=== PATIENT | female | born 1985 | race Caucasian/White ===

== ENCOUNTER 2024-06-30 15:01 | Observation (INO) | payer OTHER ==
[~2024-06-30] VITALS: Ht 152.4 cm; Wt 79.4 kg
[2024-06-30 15:29] LABS: BASOPHILS ABSOLUTE AUTO 0.07 K/mm3 (0.00-0.23); BASOPHILS PERCENT AUTO 1 % (0-2); EOSINOPHILS ABSOLUTE AUTO 0.22 K/mm3 (0.00-0.68); EOSINOPHILS PERCENT AUTO 3 % (0-6); Hematocrit 40.5 % (33.0-51.0); Hemoglobin 13.6 g/dL (11.5-16.0); IMMATURE GRAN ABSOLUTE AUTO 0.01 K/mm3 (0.00-0.10); IMMATURE GRAN PERCENT AUTO 0 % (0-1); LYMPHOCYTES ABSOLUTE AUTO 2.07 K/mm3 (0.84-5.20); LYMPHOCYTES PERCENT AUTO 29 % (21-46); MONOCYTES ABSOLUTE AUTO 0.56 K/mm3 (0.16-1.47); MONOCYTES PERCENT AUTO 8 % (4-13); Mean Corpuscular HGB 33.5 pg (26.0-34.0); Mean Corpuscular HGB Conc 33.6 g/dL (31.5-36.5); Mean Corpuscular Volume 100 fL (80-100); Mean Platelet Volume 9.3 fL (9.1-12.4); NEUTROPHILS ABSOLUTE AUTO 4.14 K/mm3 (1.96-9.15); NEUTROPHILS PERCENT AUTO 59 % (41-73); Platelet Count 249 K/mm3 (150-400); RDW Standard Deviation 48.2 fL (35.1-46.3); Red Blood Cell Count 4.06 M/mm3 (3.80-5.20); White Blood Cell Count 7.07 K/mm3 (4.00-11.30)
[2024-06-30 15:41] LABS: Source, Urine Clean Catch
[2024-06-30 15:45] LABS: Appearance, Urine Clear (Clear); Bilirubin, Urine Neg (Neg); Blood, Urine Neg (Neg); Color, Urine Yellow (P-Yellow); Glucose Qualitative, Urine Neg (Neg); Ketones, Urine Neg (Neg); Leukocyte Esterase, Urine 2+ (Neg); Nitrite, Urine Neg (Neg); Protein, Urine Neg (Neg); Specific Gravity, Urine 1.015 (1.003-1.022); Urobilinogen, Urine NORM (Normal); pH, Urine 6.5 (5.0-8.0)
[2024-06-30 15:54] LABS: Bacteria Many /hpf; Red Blood Cells, Urine 0-2 /hpf (0-2); Squamous Epithelial Cells Few /hpf (Few)
[2024-06-30 15:55] LABS: Ethanol (Alcohol), Blood, Med <3 mg/dL; Salicylate <1.7 mg/dL (2.8-20.0)
[2024-06-30 16:04] LABS: U Amphetamine Screen DETECTED; U Barbituate Screen Not Detected; U Benzodiazapine Screen DETECTED; U Buprenorphine Screen Not Detected; U Cannabinoids Screen DETECTED; U Cocaine Screen Not Detected; U Methadone Screen Not Detected; U Methamphetamine Screen Not Detected; U Opiates Screen Not Detected; U Oxycodone Screen Not Detected; U Phencyclidine Screen Not Detected
[2024-06-30 16:08] LABS: Alanine Aminotransfer (ALT/SGP 15 U/L (12-78); Albumin, Blood 3.6 g/dL (3.4-5.0); Albumin/Globulin Ratio 1.1 (0.8-1.8); Alk Phos 48 U/L (50-136); Anion Gap 8 mmol/L (3-11); Aspartate Aminotrans (AST/SGOT 13 U/L (12-37); Bilirubin, Total 0.2 mg/dL (0.1-1.0); Blood Urea Nitrogen 14 mg/dL (8-24); Bun/Creatinine Ratio 19.7 (12.0-20.0); CO2, Blood 27 mmol/L (21-32); Calcium, Blood 8.9 mg/dL (8.5-10.1); Chloride, Blood 109 mmol/L (98-108); Creatinine, Blood 0.71 mg/dL (0.40-1.00); Globulin, Blood 3.4 g/dL (2.2-4.0); Glomerular Filtration Rate 110 (60-); Glucose, Blood 95 mg/dL (70-99); Sodium, Blood 140 mmol/L (136-145)
[2024-06-30 16:12] LABS: Acetaminophen, Random <2.0 ug/mL (10.0-30.0)
[2024-06-30] MEDS ORDERED: CLONAZEPAM1 MG PO (17:14)
[2024-06-30] MEDS ORDERED: ZANAFLEX413 PO (17:15)
[2024-06-30] MEDS ORDERED: OLANZAPINE5 M1 PO (17:15)
[2024-06-30] MEDS ORDERED: PROM12.5S PR (17:16)
[2024-06-30] MEDS ORDERED: PANT20 PO (17:16)
[2024-06-30] MEDS ORDERED: CYCL10 PO (17:17)
[2024-07-01] MEDS ORDERED: ABILIFY MYCITE10 M2 PO (09:58)
[2024-07-01] MEDS ORDERED: FAMO40 PO (11:31)
[2024-07-01] MEDS ORDERED: CLON1 PO (11:33)
[2024-07-01] MEDS ORDERED: Prozac40 MG PO (11:34)
[2024-07-01] MEDS ORDERED: BUSPIRONE HCL PO (11:35)
[2024-07-01] MEDS ORDERED: LISI20 PO (11:36)
[2024-07-01] MEDS ORDERED: LEVOTHYROXINE75 MC9 PO (11:36)
[2024-07-01] MEDS ORDERED: MONT10T PO (11:37)
[2024-07-01] MEDS ORDERED: AMPDEX10 PO (11:38)
== END 2024-06-30 18:38 | disposition other institution (70) ==
LOC: ER 15:01 → EOR 15:02
PROVIDERS: ADMIT Student in an Organized Health Care Education/Training Program
DX: F33.2 Major depressive disorder, recurrent severe without psychotic features (principal); F60.3 Borderline personality disorder; R45.851 Suicidal ideations; Z88.8 Allergy status to other drugs, medicaments and biological substances; Z79.899 Other long term (current) drug therapy
CPT/HCPCS: 80053; 80320; 81001; 81025; 85025; 87086; 93005; 93010; 99285-25; G0480

== ENCOUNTER 2024-06-30 16:29 | Inpatient (IN) | payer OTHER ==
[~2024-06-30] VITALS: Ht 152.4 cm; Wt 82.0 kg
[2024-06-30] MEDS ORDERED: CLONAZEPAM1 MG PO (17:14)
[2024-06-30] MEDS ORDERED: ZANAFLEX413 PO (17:15)
[2024-06-30] MEDS ORDERED: OLANZAPINE5 M1 PO (17:15)
[2024-06-30] MEDS ORDERED: PANT20 PO (17:16)
[2024-06-30] MEDS ORDERED: PROM12.5S PR (17:16)
[2024-06-30] MEDS ORDERED: CYCL10 PO (17:17)
[2024-06-30] MEDS ORDERED: Melatonin 3 MG Tab PO PRN (17:40)
[2024-06-30] MEDS ORDERED: Haloperidol 5 MG Tab PO PRN (17:45)
[2024-06-30] MEDS ORDERED: Haloperidol Lactate Inj. 5 MG/ML Injection IM PRN (17:45)
[2024-06-30] MEDS ORDERED: Acetaminophen 325 MG TABLET PO PRN (17:45)
[2024-06-30] MEDS ORDERED: OLANZapine 10 MG Vial IM PRN (17:45)
[2024-06-30] MEDS ORDERED: TraZODone HCl 50 MG Tab PO PRN (17:45)
[2024-06-30] MEDS ORDERED: Ibuprofen 600 MG Tab PO PRN (17:45)
[2024-06-30] MEDS ORDERED: OLANZapine ODT 10 MG Tab MM PRN (17:50)
--- NOTE | 2024-06-30 19:00 | NUR ---
CAMILA ARRIVED TO UNIT AT 1945 WITH THE ACCOMPANY OF STAFF AND SECURITY. BELONGINGS SECURED, BODY AUDIT COMPLETED WITH ANDREA TEJEDA. NOTED OLD SELF-INFLICTED CUTTING PEREZ TO RT FOREARM, AND BL LEGS. PT ALSO NOTED TO HAVE SMALL BRUISE TO LLK. PT IRRITABLE, FRUSTRATED DURING ASSESSMENT. PT WAS ABLE TO COMPLETE SIGNING ADMISSION FORMS BUT STATED THIS IS DUMB AND I DON T WANT TO BE HERE OR SIGN ANY OF THIS. PT REFUSED TO COMPLETE ADMISSION ASSESSMENT, AND WAS TAKEN TO ROOM. PT BECAME AGITATED AND STATED I CANNOT BE IN A ROOM WITH SOMEONE, I NEED TO BE BY MYSELF. ON THE DIRECTION O HOME ORGANIZER, ROOM CHANGES WERE MADE AND PT WILL BE IN A ROOM BY HERSELF TONIGHT. EXPLAINED TO PT THAT THIS WAS FOR TONIGHT ONLY AND WE COULD NOT GUARANTEE SHE WOULD NOT HAVE A ROOMMATE IN THE FUTURE. PT IN AGREEMENT. THIS RN ABLE TO CALM PT AND DISCUSSED PRN MEDICATION OPTIONS TO ASSIST WITH MANAGING SX. PT DENIED AND STATED I JUST NEED TO BE AWAY FROM PEOPLE. PT IS CURRENTLY PACING UNIT WITH ARMS CROSSED. SUPPORT AND ENCOURAGEMENT PROVIDED. SAFETY MEASURES MAINTAINED VIA Q15 MINUTE CHECKS.
--- NOTE | 2024-06-30 21:36 | NUR ---
PT CAME TO NS ASKING TO BE PLACED INTO SECLUSION STATING, "I DO NOT WANT TO BE HERE." PT OBSERVED TO BE IRRITABLE, AGITATED AND TEARFUL STATING, "I DON'T WANT TO LIVE ANYMORE."PT REDIRECTED TO SENSORY ROOM AND PROVIDED A WEIGHTED BLANKET. PRN MEDICATION OFFERED AND PT AGREEABLE TO TAKE PO ZYPREXA AND TRAZODONE. MEDICATION GIVEN ORDERED; SEE EMAR. PT REMAINED IN SENSORY ROOM ANOTHER 15 MINUTES AND RETURNED TO ROOM. SAFETY MAINTAINED VIA Q15 MINUTE CHECKS.
--- NOTE | 2024-06-30 23:09 | NUR ---
CALLED AT 2155 D/T PATIENT CONTINUING TO ELEVATE WITH NO N.O RCVD. PT THEN PROCEEDED TO BANG ON WALL. THIS RN WAS EN ROUTE TO MED ROOM TO PULL PRN HALDOL WHEN [facility] SULLIVAN WAS CALLED AND SECURITY NOTIFIED. PT WAS OBSERVED BY BISHNU TEJEDA, AND SONA TRINIDAD AND ADRIANA TO BE ATTEMPTING TO STRANGLE SELF WITH ROBE AROUND NECK. PTS ROBE WAS SUCCESSFULLY REMOVED FROM PTS NECK AND PT WAS ASSISTED TO THE FLOOR. ANDREA TEJEDA MEDICATED PT WITH HALDOL 5MG IM IN RT DORSOGLUTEAL. PT AT THAT TIME REQUESTED TO GO TO SECLUSION ROOM. PT ESCORTED TO SECLUSION ROOM AT 2215 WITH STAFF AND SECURITY. PT STATED UPON GETTING TO SECLUSION ROOM, I DONT WANT YOUR HELP AND I DONT WANT TO LIVE. THE ONLY REASON I CALLED 911 WAS SO THAT MY MOM WOULD NOT FIND MY BODY. PT IS NOW LYING ON MATTRESS IN SECLUSION ROOM, CHEST RISING, IN NAD. RESEARCH AND DEVELOPMENT ENGINEER, ANDREA, NOTIFIED MD INSPECTOR ROUGH CASTINGS RE: PTS ESCALATED BEHAVIOR AND SITUATION. 1:1 LOS PRECAUTIONS INITIATED FOR PT SAFETY. NO NEW MEDICATION ORDERS RECEIVED.
--- NOTE | 2024-07-01 01:39 | NUR ---
LATE NOTE FROM 222906/30/24 PER MD. NO MEDS ARE TO BE GIVEN TO PATIENT FOR THE REST OF THE NIGHT.
[2024-07-01 02:56] VITALS: BP 128/91
--- NOTE | 2024-07-01 04:28 | NUR ---
PT REMAINS IN SECLUSION ROOM, LYING ON MATTRESS APPEARING TO SLEEP, CHEST RISING IN NAD. 1:[address] FOR PT SAFETY.
[2024-07-01] MEDS ORDERED: Multivitamins 1 Tab PO SCH (09:00)
[2024-07-01] MEDS ORDERED: ABILIFY MYCITE10 M2 PO (09:58)
[2024-07-01] MEDS ORDERED: ARIPiprazole 10 MG Tab PO SCH (10:00)
[2024-07-01] MEDS ORDERED: FLUoxetine HCL 20 MG CAP PO SCH (10:00)
[2024-07-01] MEDS ORDERED: LORazepam 1 MG Tab PO ONE (10:50)
[2024-07-01] MEDS ORDERED: FAMO40 PO (11:31)
[2024-07-01] MEDS ORDERED: CLON1 PO ×2 (11:33→11:38)
[2024-07-01] MEDS ORDERED: Prozac40 MG PO (11:34)
[2024-07-01] MEDS ORDERED: BUSPIRONE HCL PO (11:35)
[2024-07-01] MEDS ORDERED: LISI20 PO (11:36)
[2024-07-01] MEDS ORDERED: LEVOTHYROXINE75 MC9 PO (11:36)
[2024-07-01] MEDS ORDERED: MONT10T PO (11:37)
[2024-07-01] MEDS ORDERED: AMPDEX10 PO (11:38)
--- NOTE | 2024-07-01 12:00 | NUR ---
PT APPEARED TO BE SLEEPING IN THE SECLUSION ROOM AT THE START OF THE SHIFT. WHEN SHE WOKE UP SHE REPORTED, "I DON'T WANT TO FUCHING BE HEERE, I DON'T NEED ANYTHING FROM YOU! IF I HAVE TO HAVE SOMEONE I DON'T KNOW WATCHING ME EVERY MINUTE i WILL JUST STAY HERE IN THIS ROOM." REFERING TO THE SECLUSION ROOM. SEVERAL HOURS LATER SHE WENT TO HER ROOM AND WAS AGREEABLE TO TAKING MEDS. SHE HAS BEEN RESTING ON HER BED. SHE DID WRITE A MESSAGE TO THE MENTAL HEALTH PROVIDER ENDORSING THAT SHE IS NOT A THREAT TO HERSELF, SHE REMAINS ON A 1:1 STATUS FOR SAFETY.
[2024-07-01] MEDS ORDERED: BusPIRone HCl 5 MG Tab PO SCH (14:00)
--- NOTE | 2024-07-01 17:24 | NUR ---
PT WAS GIVEN ATIVAN 2MG AT 11:15, SHE ATE LUNCH AND HAS BEEN RESTING ON HER BED ALL AFTERNOON.
[2024-07-01] MEDS ORDERED: LORazepam 1 MG Tab PO SCH (21:00)
--- NOTE | 2024-07-01 21:22 | NUR ---
PT WOKE UP AT THE CHANGE OF SHIFT AND MADE A PHONE CALL TO HER MOTHER.HER VOICE TONE WAS ANGERY ND ELEVATED. SHE WAS TRYING TO TELL HER MOTHER TO LEAVE HER BOYFRIEND AND SHE NEEDED HER FOR HERSELF ONLY. SHE STATED THAT IF HER MOMS BOYFRIEND DOES NOT LEAVE THEN SHE IS GOING TO LEAVE AND HER MOM WILL NO LONGER SEE HER. PT HUNG UP ON HER MOM AND WANTED TO GO TO THE SECLUSION ROOM AT 19:15.SHE WENT INTO THE SECLUSION ROOM ON HER OWN. TRIED TO INTERVIEW HER. ASKED WHY SHE CAME INTO THIS ROOM. SHE SAID SHE COULD NOT TRUST HERSELF. REQUESTED COLACE STOOL SOFTNER SHE IS CONSTIPATED. TOLD HER WILL LEAVE A MESSAGE FOR THE DR IN THE MORNING. SHE SAID OK. SHE DID NOT WANT TO INTERVIEW. HER TONE WAS ANGERY.WILL CONTINUE TO MONITOR
--- NOTE | 2024-07-02 05:21 | NUR ---
SHIFT SUMMARY PATIENT HAS SLEPT ALL NIGHT. SHE IS IN THE SECLUSION ROOM THAT SHE PUT HERSELF IN AFTER A PHONE CALL TO HER MOTHER THAT MADE HER UPSET. SHE REMAINS ON A 1:1 STATUS. WILL CONTINUE TO MONITOR.
[2024-07-02] MEDS ORDERED: Levothyroxine Sodium 0.075 MG Tab PO SCH (06:00)
--- NOTE | 2024-07-02 08:26 | NUR ---
ASSUMED CARE FROM PRIOR SHIFT. PATIENT PUT HERSELF IN ISOLATION FOR THE EVENING SHIFT. SHE REQUESTED THIS MORNING TO GO BACK TO HER ROOM. SHE IS VERY AGITATED AND WANTING TO GO HOME. SHE IS CRYING AND YELLING TO "BE OFF 1:1 SHE FEELS LIKE A TRAPPED ANILMAL". SHE BEGAN TO BANG HER HEAD AGAINST THE BED. SN WAS ABLE TO PUT SELF AGAINST THE IMPACT OF HER AND THE BED. SHE IS COMPLIANT TO IM AND PO MEDICATIONS THIS MORING. SHE IS A/OX4, ABLE TO VOICE NEEDS AND HAVE MEANINGFUL CONVERSATION. SHE IS STILL HAVING SI THOUGHTS, DENIES AH AND VH. SHE DID REQUEST HER MATTRESS BE PUT ON THE FLOOR IN HER ROOM. SHE IS WILLING TO BE PUT IN LINE OF SIGHT WITH MATTRESS ON THE FLOOR. SHE IS CURRENTLY RESTING. WE WILL CONTINUE TO MONITOR WITH 1:1 FOR SAFETY.
[2024-07-02] MEDS ORDERED: Lisinopril 20 MG Tab PO SCH (09:00)
--- NOTE | 2024-07-02 11:46 | NUR ---
Patient continues to sleep on the floor with mattress in line of sight = 1:1. she remains impulsive when a wake, banging her head against any hard surface. we will continue to monitorfor safety. She hasn't eaten today. She is drinking water.
[2024-07-02] MEDS ORDERED: Promethazine HCl 25 MG Tab PO PRN (13:25)
--- NOTE | 2024-07-02 17:34 | NUR ---
PATIENT HAD A "LONG DAY". SHE WAS VERY TEARFUL THIS MORNING WITH AN EPPISODE OF IMPULSIVE HEAD BANGING ON THE BED FRAME. SHE HAS BEEN COMPLIANT WITH ASSESSMENT, CARE AND MEDICATIONS. SHE DID HAVE A COUPLE OF NAPS TODAY AND HAS EATEN 100% X2 MEALS. HER MOTHER CAME IN FOR A VISIT. I DID ASK CAMILA "HOW WAS YOUR VISIT WITH YOUR MOM?" SHE INFORMED ME IT WAS "SO SO". SHE HAS HAD NO NOTED BEHAVIORS OR ISSUES SENCE THIS MORNING. SHE DOES SAY SHE IS STIL HAVING THOUGHTS OF SI, DENIES ANY AH OR VH. SHE IS STILL HIGH RISK FOR SI AND REMAINS ON 1:1 FOR CONTINUED SAFETY.
[2024-07-02 21:04] VITALS: BP 138/89
--- NOTE | 2024-07-03 04:49 | NUR ---
PATIENT WAS IN HALLWAY TALKING WITH PEERS WHEN RN ARRIVED. SHE WAS PLEASANT AND COOPERATIVE WITH CARES, WANTING TO TAKE HER EVENING MEDICATIONS AND GO TO SLEEP. SHE WENT TO HER BED, BUT THEN DECIDED TO SLEEP IN THE UNLOCKED SECLUSION ROOM. SHE TOOK HER MATTRESS AND BEDDING THERE, WHERE HER 1:1 CONSTANT OBSERVATION CONTINUED. SHE THEN APPEARED TO BE SLEEPING AND WAS RESTING WITH EYES CLOSED AND RESPIRATIONS CONFIRMED. SHE DID NOT VERBALIZE ANY SUICIDAL IDEATION THIS SHIFT.
[2024-07-03] MEDS ORDERED: ARIPiprazole 5 MG Tab PO SCH (09:00)
[2024-07-03] MEDS ORDERED: HyDROXyzine HCl 25 MG Tab PO PRN (12:50)
[2024-07-03] MEDS ORDERED: HyDROXyzine HCl 10 MG Tab PO PRN (12:50)
[2024-07-03] MEDS ORDERED: OLANZapine 5 MG Tab PO PRN (12:50)
[2024-07-03] MEDS ORDERED: BusPIRone HCl 10 MG Tab PO SCH (14:00)
--- NOTE | 2024-07-03 16:34 | NUR ---
PT WAS MORE RECEPTIVE TO CARE THIS MORNING. WHEN ASKED ABOUT SI SHE REPLIED, "I ALWAYS HAVE THOSE THOUGHTS, EVEN WHEN I'M A PRODUCTIVE PART OF SOCIETY." SHE DENIED HAVING A PLAN OF HOW SHE WOULD HURT HERSELF. SHE SAID, 'I HAVE A LACK LUSTER FOR LIFE." SHE WAS GIVEN PHENERGAN 25MG FOR NAUSEA AT 7:14, 16:05. HYDROXYZINE 50MG FOR ANXIETY AT 13:05. SHE REMAINS ON 1:1 AND HAS EXPRESSED HER DISLIKE OF HAVING SOMEONE WATCHING HER ALL THE TIME. THIS AFTERNOON SHE ATTENDED A GROUP AND HAS BEEN WALKING THE HALLS TALKING TO STAFF ABOUT ROCKHOUNDING AND WAS SMILING AND ANIMATED.
--- NOTE | 2024-07-03 18:16 | NUR ---
Pt Important Information Pt requested to speak with her dr shes been seeing for sometime. She used the phone while resting in seclusion room. His name is Kian Angela with [facility]. I was able to reach out to the clinic and get him on the phone. Pt spoke with him and signed an YUSRA to have him speak directly to DR. Linda. She was hoping that he would be able to help with her treatment plan. I relayed this information over to DR. Linda and he plans to reach out to Mr. Dixon tomorrow. Pt was very responsive with her Dr on the phone and hung up with a smile on her face. After her phone call she requested to go on a walk in the allred with her sitter and has been about the milieu more inclusively.
[2024-07-03 20:33] VITALS: BP 129/88
--- NOTE | 2024-07-03 21:41 | NUR ---
Pt was visible on the unit and interactive socially with peers and staff. Hygiene adequate. Educated Pt about benefits of meditation and keeping a gratitude journal for anxiety and depression, including different ways to meditate. Pt is compliant with medications and denies SI/HI, as well as AVH. Will continue to monitor Q15.
--- NOTE | 2024-07-04 06:22 | NUR ---
PT IS IN BED WITH EYES CLOSED RESTING COMFORTABLY IN NAD. RESPIRATIONS EVEN AND UNLABORED. CHECKS DONE Q15.
[2024-07-04 08:43] VITALS: BP 139/90
--- NOTE | 2024-07-04 11:29 | NUR ---
ASUMMED PT CARE @0715. PT TOOK MORNING MEDICATIONS AND ATE BREAKFAST WITHOUT ISSUE. WHEN ASKED TO GO TO GROUP. PT DECLINED. THIS RN ENCOURAGED PT TO ATTEND GROUP. PARTICIPATION ENCOURAGED TO HAVE 1:1 REMOVED. PT DID GET UP AND PARTICIPATE AFTER THAT. PT MEDICATED 1X FOR ANXIETY AND 1X FOR NAUSEA
--- NOTE | 2024-07-04 19:23 | NUR ---
SHIFT DEL PT AA&OX4. SPEECH AND EYE CONTACT APPROPRIATE. MOOD "GOOD" AFFECT CONGRUENT. PT INITIALLY DID NOT WANT TO ATTEND GROUP BUT WITH GENTL COACHING AGREED. 1:[address] TREVINO. [facility]. PLAN TO DC TOMORROW
--- NOTE | 2024-07-05 03:55 | NUR ---
PATIENT WAS IN ROOM WHEN RN ARRIVED. SHE WAS UPSET REGARDING A PEER AND WAS GUIDED TO GROUP ROOM, WHERE SHE SAT WITH OTHER PEERS FOR A TIME. SHE WAS PLEASANT AND COOPERATIVE WITH CARES, INCLUDING EVENING MEDICATIONS. SHE WENT TO BED EARLY AND WAS NOTED TO BE RESTING QUIETLY WITH EYES CLOSED AND RESPIRATIONS CONFIRMED. SHE HAD NO S/SX SUICIDAL IDEATION NOTED THIS SHIFT.
[2024-07-05 09:08] VITALS: BP 128/75
--- NOTE | 2024-07-05 14:59 | NUR ---
PT ALERT, ORIENTED AND COOPERATIVE. AWARE OF DISCHARGE AFTER 1700 TODAY. PT HAS BEEN COOPERATIVE WITH CARE AND COMPLIANT WITH MEDICATIONS. MEDICATED X 2 FOR ANXIETY. DISCHARGE RX FAXED TO [facility] AT PT REQUEST. RETURN TO WORK NOTE OBTAINED FOR 07/15 SHE REQUESTED.
== END 2024-07-05 17:10 | disposition home or self-care (01) | DRG 885 ==
LOC: BHU 16:29
PROVIDERS: ADMIT Student in an Organized Health Care Education/Training Program
DX: F33.2 Major depressive disorder, recurrent severe without psychotic features (principal); R45.851 Suicidal ideations; F60.3 Borderline personality disorder; F43.10 Post-traumatic stress disorder, unspecified; G47.00 Insomnia, unspecified; F41.9 Anxiety disorder, unspecified; Z88.8 Allergy status to other drugs, medicaments and biological substances; Z79.899 Other long term (current) drug therapy
CPT/HCPCS: A9270; J1630

== ENCOUNTER 2024-08-19 19:37 | Emergency (ER) | payer OTHER ==
[~2024-08-19] VITALS: Ht 152.4 cm; Wt 79.4 kg
[~2024-08-19 19:37] MED LIST: ABILIFY MYCITE10 M2 PO; AMPDEX10 PO; BUSPIRONE HCL PO; CLON1 PO; CLONAZEPAM1 MG PO; CYCL10 PO; FAMO40 PO; LEVOTHYROXINE75 MC9 PO; LISI20 PO; MONT10T PO; OLANZAPINE5 M1 PO; PANT20 PO; PROM12.5S PR; Prozac40 MG PO; ZANAFLEX413 PO
[2024-08-19] MEDS ORDERED: IBUP600 PO (21:56)
[2024-08-19] MEDS ORDERED: AMOCLA875 PO (21:56)
[2024-08-19] MEDS ORDERED: Amoxicillin/Clavulanate K 875 MG Tab PO ONE (22:00)
== END 2024-08-19 22:05 | disposition home or self-care (01) ==
LOC: ER 19:37
DX: K11.21 Acute sialoadenitis (principal); Z79.899 Other long term (current) drug therapy; Z79.890 Hormone replacement therapy; Z88.8 Allergy status to other drugs, medicaments and biological substances; Z76.89 Persons encountering health services in other specified circumstances
CPT/HCPCS: 99282; A9270

== ENCOUNTER → 2024-11-04 | Outpatient (CLI) | payer OTHER ==
[~2024-11-04] MED LIST changes: +AMOCLA875 PO; +IBUP600 PO
[2024-11-04 12:20] LABS: BASOPHILS ABSOLUTE AUTO 0.07 K/mm3 (0.00-0.23); BASOPHILS PERCENT AUTO 1 % (0-2); EOSINOPHILS ABSOLUTE AUTO 0.33 K/mm3 (0.00-0.68); EOSINOPHILS PERCENT AUTO 5 % (0-6); Hematocrit 37.3 % (33.0-51.0); Hemoglobin 12.3 g/dL (11.5-16.0); IMMATURE GRAN ABSOLUTE AUTO 0.02 K/mm3 (0.00-0.10); IMMATURE GRAN PERCENT AUTO 0 % (0-1); LYMPHOCYTES ABSOLUTE AUTO 1.71 K/mm3 (0.84-5.20); LYMPHOCYTES PERCENT AUTO 26 % (21-46); MONOCYTES ABSOLUTE AUTO 0.46 K/mm3 (0.16-1.47); MONOCYTES PERCENT AUTO 7 % (4-13); Mean Corpuscular HGB 33.5 pg (26.0-34.0); Mean Corpuscular Volume 102 fL (80-100); Mean Platelet Volume 9.1 fL (9.1-12.4); NEUTROPHILS ABSOLUTE AUTO 4.01 K/mm3 (1.96-9.15); NEUTROPHILS PERCENT AUTO 61 % (41-73); Platelet Count 247 K/mm3 (150-400); RDW Coefficient Variation 12.4 % (11.7-14.2); RDW Standard Deviation 46.5 fL (35.1-46.3); Red Blood Cell Count 3.67 M/mm3 (3.80-5.20)
== END ==
LOC: LAB SHORT 12:17 → LAB 12:17
PROVIDERS: Family Medicine
DX: Z86.2 Personal history of diseases of the blood and blood-forming organs and certain disorders involving the immune mechanism (principal)
CPT/HCPCS: 85025

== ENCOUNTER → 2025-04-20 | Outpatient (CLI) | payer OTHER ==
[2025-04-20 16:34] LABS: Anion Gap 6.0 mmol/L (3-11); Blood Urea Nitrogen 12.0 mg/dL (8-24); CO2, Blood 29.0 mmol/L (21-32); Calcium, Blood 8.4 mg/dL (8.5-10.1); Chloride, Blood 107.0 mmol/L (98-108); Creatinine, Blood 0.89 mg/dL (0.40-1.00); Glucose, Blood 106.0 mg/dL (70-99); Potassium, Blood 3.8 mmol/L (3.5-5.5); Sodium, Blood 138.0 mmol/L (136-145); Thyroid Stimulating Hormone 2.38 uIU/mL (0.360-4.800)
== END ==
LOC: LAB SHORT 15:46 → LAB 15:46
PROVIDERS: Family Medicine
DX: I10 Essential (primary) hypertension (principal); E03.9 Hypothyroidism, unspecified
CPT/HCPCS: 80048; 84443

== ENCOUNTER → 2025-06-19 | Outpatient (CLI) | payer OTHER ==
[2025-06-19 19:52] LABS: BASOPHILS ABSOLUTE AUTO 0.05 K/mm3 (0.00-0.23); BASOPHILS PERCENT AUTO 1 % (0-2); EOSINOPHILS ABSOLUTE AUTO 0.20 K/mm3 (0.00-0.68); EOSINOPHILS PERCENT AUTO 3 % (0-6); Hematocrit 39.9 % (33.0-51.0); Hemoglobin 13.1 g/dL (11.5-16.0); IMMATURE GRAN ABSOLUTE AUTO 0.01 K/mm3 (0.00-0.10); IMMATURE GRAN PERCENT AUTO 0 % (0-1); LYMPHOCYTES ABSOLUTE AUTO 1.84 K/mm3 (0.84-5.20); LYMPHOCYTES PERCENT AUTO 31 % (21-46); MONOCYTES ABSOLUTE AUTO 0.47 K/mm3 (0.16-1.47); MONOCYTES PERCENT AUTO 8 % (4-13); Mean Corpuscular HGB Conc 32.8 g/dL (31.5-36.5); Mean Corpuscular Volume 101 fL (80-100); NEUTROPHILS ABSOLUTE AUTO 3.39 K/mm3 (1.96-9.15); NEUTROPHILS PERCENT AUTO 57 % (41-73); NRBC ABSOLUTE 0.00 K/mm3 (0.00-0.02); NRBC Auto 0.0 /100 WBC (0.0-0.2); Platelet Count 285 K/mm3 (150-400); RDW Coefficient Variation 12.7 % (11.7-14.2); RDW Standard Deviation 47.8 fL (35.1-46.3)
[2025-06-19 20:37] LABS: Candida Group, PCR NOT DETECTED (NOT DETECT); Candida glabrata-krusei, PCR NOT DETECTED (NOT DETECT)
[2025-06-19 20:49] LABS: Alanine Aminotransfer (ALT/SGP 28 U/L (12-78); Albumin, Blood 4.0 g/dL (3.4-5.0); Albumin/Globulin Ratio 1.2 (0.8-1.8); Anion Gap 9 mmol/L (3-11); Aspartate Aminotrans (AST/SGOT 23 U/L (12-37); Bilirubin, Total 0.2 mg/dL (0.1-1.0); Blood Urea Nitrogen 9 mg/dL (8-24); CHOL/HDL RATIO 3.6; CO2, Blood 26 mmol/L (21-32); Calcium, Blood 9.1 mg/dL (8.5-10.1); Chloride, Blood 106 mmol/L (98-108); Cholesterol 182 mg/dL (50-200); Creatinine, Blood 0.77 mg/dL (0.40-1.00); Globulin, Blood 3.4 g/dL (2.2-4.0); Glucose, Blood 95 mg/dL (70-99); HDL Cholesterol 50 mg/dL (>39); LDL/HDL RATIO 2.3; Low Density Lipoprotein Chol 117 mg/dL (0-110); Potassium, Blood 3.8 mmol/L (3.5-5.5); Sodium, Blood 137 mmol/L (136-145); Thyroid Stimulating Hormone 2.400 uIU/mL (0.360-4.800); Total Protein, Blood 7.4 g/dL (6.4-8.2); Triglycerides 74 mg/dL (30-160); Very Low Density Lipoprot Chol 14 mg/dL (6-32)
[2025-06-19 21:07] LABS: Chlamydia Trachomatis Vaginal NOT DETECTED (NOT DETECT); Neisseria Gonorrhoea Vaginal NOT DETECTED (NOT DETECT)
[2025-06-19 22:02] LABS: Bacterial Vaginosis PCR Positive (NEGATIVE)
[2025-06-22 16:08] LABS: HIV 1,2 COMBO ANTIGEN/ANTIBODY Negative (Negative)
[2025-06-23 13:12] LABS: HCV QNT BY NAAT (IU/ML) Not Detected; HCV QNT BY NAAT (LOG IU/ML) Not Detected; HCV QNT BY NAAT INTERP Not Detected (Not Detected)
== END ==
LOC: LAB SHORT 12:00 → LAB 12:00
PROVIDERS: Nurse Practitioner Family
DX: Z00.00 Encounter for general adult medical examination without abnormal findings (principal); Z72.51 High risk heterosexual behavior
CPT/HCPCS: 80053; 80061; 81515; 83036; 84443; 85025; 86592; 87389; 87491; 87522; 87591